=== PATIENT | male | born 1975 | race Caucasian/White ===

== ENCOUNTER 2017-01-12 17:09 | Emergency (ER) | payer SELFPAY ==
[~2017-01-12] VITALS: Ht 190.5 cm; Wt 117.9 kg
== END 2017-01-12 17:44 | disposition home or self-care (01) ==
LOC: ED 17:09
DX: S01.511A Laceration without foreign body of lip, initial encounter (principal); F17.200 Nicotine dependence, unspecified, uncomplicated; Y08.89XA Assault by other specified means, initial encounter; Y93.89 Activity, other specified; Y92.89 Other specified places as the place of occurrence of the external cause; Y99.9 Unspecified external cause status

== ENCOUNTER 2017-09-06 13:40 | Emergency (ER) | payer OTHER ==
[~2017-09-06] VITALS: Wt 120.2 kg
[2017-09-06] MEDS ORDERED: Orphenadrine C100 MG PO (16:33)
[2017-09-06] MEDS ORDERED: NAPROSYN500 MG PO (16:33)
== END 2017-09-06 16:58 | disposition home or self-care (01) ==
LOC: ED 13:40
DX: S16.1XXA Strain of muscle, fascia and tendon at neck level, initial encounter (principal); R51 Headache; V87.7XXA Person injured in collision between other specified motor vehicles (traffic), initial encounter; Y93.89 Activity, other specified; Y92.89 Other specified places as the place of occurrence of the external cause; Y99.8 Other external cause status